=== PATIENT | male | born 1990 | race African-American/Black ===

== ENCOUNTER 2018-04-03 07:30 | Emergency (ER) | payer MEDICAID, SELFPAY ==
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
[2018-04-03] MEDS ORDERED: Lidocaine 1% (PF) 30 ML VIAL ONE (08:37)
[2018-04-03] MEDS ORDERED: HYDROcodone/Acetaminophen 10/325 mg Tablet ONE (09:34)
[2018-04-03] MEDS ORDERED: Bacitracin Zinc 1 Packet ONE (09:36)
== END 2018-04-03 09:30 | disposition home or self-care (01) ==
LOC: ERS 07:30
DX: S51.812A Laceration without foreign body of left forearm, initial encounter (principal); X99.9XXA Assault by unspecified sharp object, initial encounter; Y92.410 Unspecified street and highway as the place of occurrence of the external cause
CPT/HCPCS: 12032; J2001

== ENCOUNTER 2018-10-08 23:11 | Emergency (ER) | payer SELFPAY | END 2018-10-08 23:26 | disposition home or self-care (01) | LOC: ERS 23:11 | DX: F12.10 Cannabis abuse, uncomplicated (principal) | CPT/HCPCS: 99283 ==